=== PATIENT | male | born 1985 | race Caucasian/White ===

== ENCOUNTER 2018-08-28 15:13 | Inpatient (IN) | payer OTHER ==
[2018-08-28] MEDS ORDERED: HYDROmorphONE/DILAUDID 2 MG/ML INJ IVP ONE ×3 (15:16→15:27)
[2018-08-28] MEDS ORDERED: TDAP ADULT 0.5 ML INJ (BOOSTRIX) IM ONE (15:21)
[2018-08-28] MEDS ORDERED: ceFAZolin 2 GM/DEXTROSE 100 ML IV ONE (15:21)
[2018-08-28] MEDS ORDERED: PROPOFOL 200 MG/20 ML VIAL ONE (15:32)
[2018-08-28] MEDS ORDERED: fentaNYL 250 MCG/5 ML INJ ONE (15:32)
[2018-08-28] MEDS ORDERED: BACITRACIN 50,000 UNITS/10 ML SYR IRR ONE ×2 (15:34→17:06)
--- NOTE | 2018-08-28 15:35 | EDPHY ---
H & P Stated Complaint: Full Trauma Time Seen by Provider: 08/28/18 15:15 HPI/ROS: CHIEF COMPLAINT: Right forearm amputation HISTORY OF PRESENT ILLNESS: 33-year-old male presents as a full trauma team activation with a rate forearm amputation. He was at work, using an industrial mixer when his hand became caught in the mixer at 1446. Complete amputation at the level of the midshaft of the right forearm. A tourniquet was quickly placed and bleeding controlled. He also sustained a laceration in the right axilla. Fentanyl 100 mcg IV by EMS. Patient continues to complain of severe pain. No other injuries. REVIEW OF SYSTEMS: complete 10 point ROS negative except as noted in the HPI Source: Patient, EMS - Social History Alcohol Use: Sober - Physical Exam Exam: General Appearance: Alert, appears in pain Head: Atraumatic Eyes: No conjunctival erythema, PERRLA, EOMI ENT, Mouth: no bony tenderness Neck: Nontender, no injury Respiratory: lungs clear bilaterally Cardiovascular: Regular rate and rhythm Abdomen: Abdomen is soft and nontender Skin: No other lacerations or abrasions Back: Log-rolled, no injuries, No midline T/L/S tenderness Extremities: Right upper extremity-tourniquet placed on the lower aspect of the upper arm, complete amputation at the level of the mid-forearm, mangled tissue proximally, no bleeding; right axilla-approx 8cm laceration, no active bleeding Neurological: A&Ox3, motor/sensory grossly intact Psychiatric: Anxious, uncomfortable Constitutional: Initial Vital Signs Temperature (C) 36.5 C 08/28/18 15:14 Heart Rate 118 H 08/28/18 15:14 Respiratory Rate 24 H 08/28/18 15:14 Blood Pressure 132/82 H 08/28/18 15:14 O2 Sat (%) 100 08/28/18 15:14 O2 Delivery Mode Nasal Cannula O2 (L/minute) 4 Allergies/Adverse Reactions: No Known Allergies Allergy (Unverified 08/28/18 15:14) Home Medications: Medication Instructions Recorded NK [No Known Home Meds] 08/28/18 Medical Decision Making - Diagnostics Imaging Results: Imaging Impressions Chest X-Ray 08/28/18 15:16 Impression: Cardiomegaly with mild peribronchial thickening that could be related to fluid overload or bronchitis/airways disease, without harsh failure. Forearm X-Ray 08/28/18 15:18 Impression: Amputation of the upper extremity distal to the distal radial and ulnar diaphyses, with severely comminuted fractures of the distal radius and ulna. Findings discussed with Lisa Cahdwick M.D., on August 28, 2018 at 1530 hours. Imaging: Discussed imaging studies w/ charge nurse Radiologist, I viewed and interpreted images myself ED Course/Re-evaluation: This patient presents as a full trauma team activation with a complete amputation at the level of the right forearm. Amputated rt hand/wrist/forearm brought to ED with pt. Distal limb is quite mangled. Dr. Castillo, Dr. Fortune and Dr. Cantu were present on patient arrival. Call to [facility] ortho by Dr. Fortune re viability of limb. Limb is non-viable on their (and Dr. Fortune /Dr. Castillo's) assessment. Dilaudid 1 mg IV x2 for pain control. Ancef 2 mg IV and tetanus vaccination given. Concern for pneumothorax or intrathoracic injury given proximal axillary laceration. Stat chest x-ray reveals no evidence of pneumothorax or rib fx. Pt logrolled; no injury to neck/back. The patient went directly to the operating room, accompanied by Dr. Castillo. - Data Points Laboratory Results: Laboratory Results 08/28/18 15:25 08/28/18 15:25 08/28/18 08/28/18 08/28/18 15:28 15:25 15:25 WBC RBC Hgb POC Hgb 15.6 gm/dL gm/dL (13.7-17.5) Hct POC Hct 46 % % (40-51) MCV MCH MCHC RDW Plt Count MPV Neut % (Auto) Lymph % (Auto) Mccone % (Auto) Eos % (Auto) Baso % (Auto) Nucleat RBC Rel Count Absolute Neuts (auto) Absolute Lymphs (auto) Absolute Monos (auto) Absolute Eos (auto) Absolute Basos (auto) Absolute Nucleated RBC Immature Gran % Immature Gran # POC Sodium 144 mEq/L mEq/L (135-145) Sodium 139 mEq/L mEq/L (135-145) POC Potassium 2.8 mEq/L L mEq/L (3.3-5.0) Potassium 3.2 mEq/L L mEq/L (3.5-5.2) POC Chloride 104 mEq/L mEq/L (97-110) Chloride 108 mEq/L mEq/L (97-110) Carbon Dioxide 22 mEq/l mEq/l (22-31) Anion Gap 9 mEq/L mEq/L (6-14) POC BUN 11 mg/dL mg/dL (7-23) BUN 13 mg/dL mg/dL (7-23) Creatinine 0.8 mg/dL mg/dL (0.7-1.3) POC Creatinine 0.9 mg/dL mg/dL (0.7-1.3) Estimated GFR > 60 Glucose 93 mg/dL mg/dL (70-100) POC Glucose 95 mg/dL mg/dL (70-100) Calcium 9.0 mg/dL mg/dL (8.5-10.4) Patient ABO/Rh B NEGATIVE Antibody Screen NEGATIVE 08/28/18 15:25 WBC 11.59 10^3/uL H 10^3/uL (3.80-9.50) RBC 5.14 10^6/uL 10^6/uL (4.40-6.38) Hgb 15.8 g/dL g/dL (13.7-17.5) POC Hgb Hct 45.4 % % (40.0-51.0) POC Hct MCV 88.3 fL fL (81.5-99.8) MCH 30.7 pg pg (27.9-34.1) MCHC 34.8 g/dL g/dL (32.4-36.7) RDW 14.6 % % (11.5-15.2) Plt Count 249 10^3/uL 10^3/uL (150-400) MPV 10.9 fL fL (8.7-11.7) Neut % (Auto) 56.8 % % (39.3-74.2) Lymph % (Auto) 32.4 % % (15.0-45.0) Mccone % (Auto) 7.7 % % (4.5-13.0) Eos % (Auto) 1.7 % % (0.6-7.6) Baso % (Auto) 0.5 % % (0.3-1.7) Nucleat RBC Rel Count 0.0 % % (0.0-0.2) Absolute Neuts (auto) 6.58 10^3/uL H 10^3/uL (1.70-6.50) Absolute Lymphs (auto) 3.76 10^3/uL H 10^3/uL (1.00-3.00) Absolute Monos (auto) 0.89 10^3/uL H 10^3/uL (0.30-0.80) Absolute Eos (auto) 0.20 10^3/uL 10^3/uL (0.03-0.40) Absolute Basos (auto) 0.06 10^3/uL 10^3/uL (0.02-0.10) Absolute Nucleated RBC 0.00 10^3/uL 10^3/uL (0-0.01) Immature Gran % 0.9 % % (0.0-1.1) Immature Gran # 0.10 10^3/uL 10^3/uL (0.00-0.10) POC Sodium Sodium POC Potassium Potassium POC Chloride Chloride Carbon Dioxide Anion Gap POC BUN BUN Creatinine POC Creatinine Estimated GFR Glucose POC Glucose Calcium Patient ABO/Rh Antibody Screen Medications Given: Discontinued Medications Diphtheria/Tetanus/Acell Pertussis (Boostrix) 0.5 ml IM .ONCE ONE Stop: 08/28/18 15:22 Last Admin: 08/28/18 15:29 Dose: 0.5 ml Hydromorphone HCl (Dilaudid) 1 mg IVP EDNOW ONE Stop: 08/28/18 15:17 Last Admin: 08/28/18 15:16 Dose: 1 mg Hydromorphone HCl (Dilaudid) 1 mg IVP EDNOW ONE Stop: 08/28/18 15:23 Last Admin: 08/28/18 15:23 Dose: 1 mg Hydromorphone HCl (Dilaudid) 1 mg IVP EDNOW ONE Stop: 08/28/18 15:28 Last Admin: 08/28/18 15:26 Dose: 1 mg Cefazolin Sodium/Dextrose (Ancef) 100 mls @ 200 mls/hr IV EDNOW ONE PRN Reason: Protocol Stop: 08/28/18 15:50 Last Admin: 08/28/18 15:22 Dose: 100 mls Point of Care Test Results: Chemistry 08/28/18 15:28 POC Sodium 144 mEq/L mEq/L (135-145) POC Potassium 2.8 mEq/L L mEq/L (3.3-5.0) POC Chloride 104 mEq/L mEq/L (97-110) POC BUN 11 mg/dL mg/dL (7-23) POC Creatinine 0.9 mg/dL mg/dL (0.7-1.3) POC Glucose 95 mg/dL mg/dL (70-100) ISTAT H&H 08/28/18 15:28 POC Hgb 15.6 gm/dL gm/dL (13.7-17.5) POC Hct 46 % % (40-51) Departure - Departure Disposition: [facility] Inpatient Acute Clinical Impression: Traumatic amputation of right forearm Qualifiers: Encounter type: initial encounter Qualified Code(s): S58.911A - Complete traumatic amputation of right forearm, level unspecified, initial encounter Condition: Serious
[2018-08-28 15:36] LABS: PLATELET COUNT 249 10^3/uL (150-400)
[2018-08-28] MEDS ORDERED: POLYMYXIN B SULFATE 500,000 UNIT/10 ML SYR IRR ONE (15:38)
[2018-08-28] MEDS ORDERED: ROCURONIUM 50 MG/5 ML VIAL ONE (16:31)
[2018-08-28] MEDS ORDERED: HYDROmorphONE/DILAUDID 2 MG/ML INJ ONE ×2 (16:32→18:17)
[2018-08-28] MEDS ORDERED: DEXAMETHASONE 4 MG/ML VIAL ONE ×2 (16:32)
[2018-08-28] MEDS ORDERED: ONDANSETRON 4 MG/2 ML VIAL ONE ×3 (16:32→18:17)
[2018-08-28] MEDS ORDERED: SUGAMMADEX SODIUM 200 MG/2 ML VIAL IVP ONE (17:22)
[2018-08-28] MEDS ORDERED: BUPIVACAINE 0.5% 30 ML SDV ONE (17:24)
[2018-08-28] MEDS ORDERED: fentaNYL 100 MCG/2 ML INJ ONE (17:58)
[2018-08-28] MEDS: ONDANSETRON 4 MG/2 ML VIAL IVP PRN ×2 (17:58→18:19)
[2018-08-28] MEDS: fentaNYL 100 MCG/2 ML INJ IVP PRN ×2 (17:58→18:13)
[2018-08-28] MEDS ORDERED: PROMETHAZINE HCL 25 MG/ML INJ IVP PRN ×2 (17:59→18:20)
[2018-08-28] MEDS ORDERED: ACETAMINOPHEN 500 MG TAB PO PRN (17:59)
[2018-08-28] MEDS ORDERED: oxyCODONE IR 5 MG TAB PO PRN (17:59)
[2018-08-28] MEDS ORDERED: ALBUTEROL 3 ML DEYVIAL IH PRN (17:59)
[2018-08-28] MEDS ORDERED: NALOXONE HCL 0.4 MG/ML INJ IVP PRN ×2 (17:59→18:20)
--- NOTE | 2018-08-28 17:59 | PDANEPAE ---
ANE History of Present Illness R Hand Traumatic Amputation ANE Review of Systems Review of Systems: ANE Patient History - Allergies Allergies/Adverse Reactions: No Known Allergies Allergy (Unverified 08/28/18 15:14) - Home Medications Home Medications: NK [No Known Home Meds] 08/28/18 [Last Taken Unknown] - Alcohol Use Alcohol Use: Sober ANE Labs/Vital Signs - Labs Result Diagrams: 08/28/18 15:25 08/28/18 15:25 - Vital Signs Blood Pressure: 160/98 Heart Rate: 79 Respiratory Rate: 22 O2 Sat (%): 100 Height: 177.8 cm Weight: 74.5 kg ANE Physical Exam - Airway Neck exam: FROM Mallampati Score: Class 2 Mouth exam: poor dentition - Pulmonary Pulmonary: clear to auscultation - Cardiovascular Cardiovascular: regular rate and rhythym - ASA Status ASA Status: II, E ANE Anesthesia Plan Anesthesia Plan: general endotracheal anesthesia Urgent/Emergent Case: Sheron lowery completed preop but documented later for safe timely pt care
--- NOTE | 2018-08-28 17:59 | POSTANESTH ---
Post Anesthetic Evaluation Cardiovascular Status: Normal, Stable Respiratory Status: Normal, Stable Level of Consciousness/Mental Status: Can Participate in Eval, Alert and Oriented Pain Control: Adequate, Prn Tx Ordered Nausea/Vomiting Control: Adequate, Prn Tx Ordered Complications Possibly Related to Anesthesia: None Noted
[2018-08-28] MEDS ORDERED: HYDROCODONE/APAP 5/325 TAB PO PRN (18:07)
--- NOTE | 2018-08-28 18:14 | POSTOPPROG ---
Post Op Note Date of Operation: 08/28/18 Surgeon: Tong Castillo Anesthesiologist: shea Anesthesia: GET(General Endotracheal) Pre-op Diagnosis: traumatic Forearm amputation Rt Post-op Diagnosis: same Indication: amputation Procedure: 1. revision FAS amputation., 2. I&D laceration Rt axilla Inf/Abcess present in the surg proc area at time of surgery?: No EBL: 50-100 Complications: none
[2018-08-28] MEDS: HYDROmorphONE/DILAUDID 2 MG/ML INJ IVP PRN ×4 (18:22→19:43)
[2018-08-28] MEDS ORDERED: PROMETHAZINE HCL 25 MG/ML INJ ONE (18:32)
--- NOTE | 2018-08-28 18:40 | GOP ---
DATE OF OPERATION: 08/28/2018 SURGEON: Tong Castillo MD ANESTHESIOLOGIST: Dr. Neri. PREOPERATIVE DIAGNOSIS: Distal 1/3rd forearm amputation right hand, laceration , right axilla. POSTOPERATIVE DIAGNOSIS: PROCEDURE PERFORMED: 1. Revision amputation with incision and drainage, complex wound closure, right forearm. 2. Incision and drainage, wound closure laceration right axilla. FINDINGS: INDICATIONS: This is a 33-year-old male who was at work shortly before 3 o' clock today when he got his right arm stuck into an industrial mixer. This amputated his hand distal 3rd region of the forearm. He was brought urgently by EMS to the [facility]. He was evaluated in the [facility] [place] by myself with Dr. Luke Jang from Trauma surgery and Dr. Chase Fortune. They did bring what was remaining of the hand and forearm. The hand was not salvageable, there were no visible vessels. Median nerve was completely avulsed from the hand. The residual hand and the tissues were all covered in a thick paste like food material. He had active bleeding from his forearm despite a field tourniquet that had been on for 40 minutes by the time he arrived in the trauma bay. There were no other obvious injuries other than the laceration to the axilla. He could lift his shoulder and move his elbow, which was consistent with an intact brachial plexus. He was taken urgently to the operating room for control of his bleeding and revision amputation and closure of his axillary wound. DESCRIPTION OF PROCEDURE: He was taken to the operating room, he got 2 g of Ancef in the trauma bay. The field tourniquet was let down as we prepped the arm. There was some active bleeding from the radial vessel. We then draped the arm sterilely. I explored the radial vessel and was able to ligate it using silk ties the ulnar and interosseous vessels were identified and ligated. Median nerve was identified. This was also ligated and cut. The wound was irrigated with pulsatile lavage. There was no further active bleeding. I was then able to remove multiple loose fragments of bone from the radius and ulna fractures and using an oscillating saw, I smoothed off the ends of the bone with a smooth cut. Wound was irrigated a final time. Imaging was brought in. There were no loose bodies within the forearm. No pieces of bone remained within the wound. I then freed up the fascia on the volar and dorsal aspect of the forearm and was able to close this over the remaining forearm muscles. Then using a fishmouth type of incision, I was able to loosely close the skin over the end of the amputation. There was some abrasions of the skin, but it was intact and appeared viable. The deep layers were closed with #0 Vicryl, superficial layers closed with 3-0 nylon. I then turned my attention to the axilla. This appeared to be just a superficial wound with no vessels involved. The brachial plexus was still completely covered beneath the fascia. There was only minimal bleeding from the skin edges. There was no deep bleeding from the axilla. I irrigated the axillary wound with pulsatile lavage as well. A total of 6 L was used between the forearm and the axilla with polymyxin and bacitracin within the irrigation fluid. I then loosely closed the wound with 2-0 Vicryl and interrupted 3-0 nylon suture. I instilled 30 mL of 0.5% Marcaine plain around the axillary laceration and in a ring block around the forearm for postoperative analgesia. A bulky compressive dressing was applied to the forearm and a silver impregnated dressing was applied in the axilla. The patient was awakened from anesthesia, taken to recovery room in satisfactory condition. There were no immediate intraoperative complications. COMPLICATIONS: None. DRAINS: None. /[id number]/MODL MTDD
[2018-08-28] MEDS: KETOROLAC 15 MG/1 ML SDV IVP SCH ×2 (19:20→20:28)
[2018-08-28] MEDS ORDERED: KETOROLAC 15 MG/1 ML SDV ONE (19:23)
--- NOTE | 2018-08-28 19:29 | ASMTCMCOM ---
CM Note CM Note Notes: Pt presented to the ED via EMS as a FTA after having his right hand and partial forearm mechanically amputated by an industrial mixer at work. Unfortunately the amputated hand was assessed and deemed not salvageable/not viable for reattachment. Pt is right handed. Pt requested this CM contact his mother, Ashley ([phone]). Spoke w/Ashley and she was on her way to the hospital. Ashley arrived to the ED after pt had already been transferred to OR for revision, I&D and I&D of a right axilla laceration. This CM met Ashley at the ED waiting area and brought her back to the ED family room. Ashley updated on pt's status and that the pt's hand was not going to be able to be reattached. Ashley was understandably upset and distraught over this news. Emotional support provided. Tg Santamaria w/[facility] was also able to come and be w/Ashley, assist her to the OR waiting area, and provide her w/support. 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 Ashley said she and the pt recently reunited; Ashley moved to [place] two years ago and the pt moved here about a year ago. Ashley states pt and her have been working on rebuilding their relationship and have made improvements but "still have a ways to go." Ashley is concerned about how this life-changing injury/amputation w/effect the pt's mental stability (pt has a history of SI). Pt also has a history of overdosing on narcotics so Ashley is worried about pt becoming addicted to pain meds again. Ashley is hoping that the pt will also receive mental health support/therapy in addition to all the PT/OT therapies, rehab, etc. This CM explained that the pt can definitely be provided w/various mental health resources, be assisted w/establishing a PCP, and be visited by [facility] for additional emotional support if he would like. Ashley says she and the pt do not have any family or friend support in the area. Ashley was worried that she might have left her door open to their house in [place] but when asked if she could call a neighbor she said "I don't know any of them. I don't know anyone around here. I just go to work and come home." Tg w/[facility] also provided Ashley w/various trauma/grief resources. 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 Pt's cell phone is locked up w/security. Exact DC needs TBD. CM to follow. Date Signed: 08/28/2018 07:28 PM Electronically Signed By:Jigna Gibson RN
[2018-08-28] MEDS: D5W 1/2 NS W/ 20 KCl/L 1,000 ML IV SCH (20:17)
--- NOTE | 2018-08-28 20:20 | GHP ---
DATE OF ADMISSION: 08/28/2018 The patient is brought as a full trauma activation. 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 The hand specimen consisted of a normal-appearing right hand with lengthy segments of avulsed musculature, yoon ne, nerves, tendons, etc., shredded and covered in melted chocolate. The patient was seen initially with Dr. Tong Castillo, orthopedic surgeon, who was in attendance when the patient arrived, as was I. The patient gave a coherent medical history, denying allergies, curr ent medications, previous surgical procedures or medical problems such as heart trouble, diabetes, ep ilepsy, rheumatic fever. PHYSICAL EXAMINATION: GENERAL: Alert male complaining of severe right arm pain. A tourniquet is pr esent below the biceps on the right. He moves the right arm freely. The right hand is missing dista l to the forearm, and there is an extension of the laceration in the left upper arm into the axilla, and numerous nerves and superficial vessels are seen crossing the axilla at the sign of the skin avul glenna. It does not appear to extend into the deep vessels. As mentioned, the patient moves the shoul rex girdle freely. HEENT: Atraumatic. LUNGS: Clear. HEART: Normal S1, S2 without murmur. ABDOME N: Soft, benign. Pelvis stable. EXTREMITIES: Lower extremities and left upper extremity are atrau matic. The patient is eventually turned over on his side. Examination of the posterior spine and ba ck shows no other injuries. I discussed the nature of the amputation with Dr. Castillo and Dr. Fortune was in attendance as well, and we all agree that there was no possibility of salvage of this mangled arm. I believe they consul sarabjit with people in [place] as well by sending picture images. Dr. Casitllo wanted to take the patient to complete the amputation, which is appropriate, and this wa s done. /[id number]/MODL
[2018-08-28] MEDS: DOCUSATE SODIUM 100 MG CAP PO SCH (20:48)
[2018-08-28] MEDS: OXYCODONE/APAP 5/325 TAB PO PRN ×2 (20:48→21:36)
[2018-08-28] MEDS: HYDROmorphONE/DILAUDID 1 MG/ML INJ IVP PRN ×3 (22:26→23:56)
[2018-08-28] MEDS: ceFAZolin 2 GM/DEXTROSE 100 ML IV SCH (23:13)
[2018-08-29] MEDS: HYDROmorphONE/DILAUDID 1 MG/ML INJ IVP PRN ×4 (02:37→07:20)
--- NOTE | 2018-08-29 02:38 | GHP ---
DATE OF ADMISSION: 08/28/2018 REASON FOR ADMISSION: Traumatic amputation, right forearm. HISTORY OF PRESENT ILLNESS: The patient was at work this afternoon and got his right hand stuck in a n industrial mixer, and sustained a traumatic forearm amputation of the distal third of his forearm. He was brought urgently to [facility] by EMS along with the amput ated extremity. This was completely mangled and unable to be salvaged. The extremity was examined b y myself, Dr. Luke Nance, as well as Dr. Shiraz Fortune, another orthopedic surgeon, who all agre ed with proceeding with an amputation of the forearm. He was evaluated in the [facility] [place] for any oth er injuries, not found, and brought urgently, because of active bleeding, up to the operating room fo r revision amputation and control of bleeding. PRIOR MEDICAL HISTORY: None. MEDICATIONS: None. ALLERGIES: None. 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 Lives with his mom. Does not smoke. Sounds like he does have a history of some alcohol abuse in the past. No current use. PHYSICAL EXAM: He is in obvious distress. He answers questions appropriately. He has a traumatic a mputation distal through the arm with active bleeding. He has a field tourniquet in place on the dis ian upper arm. There is a large, 16 cm, laceration in the underside of his axilla. No active arteri al bleeding noted from that wound. No other injuries are seen. IMAGING STUDIES: X-rays in the [facility] do show comminuted radioulnar fractures at the amputation site with multiple loose fragments within the wound. ASSESSMENT: Traumatic forearm amputation, right. PLAN: We discussed the plan with the patient. He understands that the arm is not salvageable and gi ves his verbal consent to proceed to the operating room for a revision of the right forearm, and wash out and closure of the axillary wound. He verbalizes consent in the [facility] [place] and is then taken urg ently to the operating room for the procedure. /[id number]/MODL
[2018-08-29] MEDS: oxyCODONE IR 5 MG TAB PO PRN ×5 (06:29→20:38)
[2018-08-29] MEDS: D5W 1/2 NS W/ 20 KCl/L 1,000 ML IV SCH ×2 (07:22→17:48)
[2018-08-29] MEDS: KETOROLAC 15 MG/1 ML SDV IVP SCH ×2 (07:24→14:39)
[2018-08-29] MEDS: ceFAZolin 2 GM/DEXTROSE 100 ML IV SCH (07:25)
[2018-08-29] MEDS: DOCUSATE SODIUM 100 MG CAP PO SCH ×2 (08:48→20:39)
--- NOTE | 2018-08-29 11:53 | PDMN ---
Medical Necessity Medical necessity: [facility] musculoskeletal sgy INPT only: OP: I/D, revision FAS amputation, -- pt with traumatic amputation of arm, non salvageable- taken urgently to OR
[2018-08-29] MEDS: NICOTINE 21 MG/24 HR PATCH TD SCH (12:12)
--- NOTE | 2018-08-29 13:17 | SOAPPROG ---
SOAP Progress Note Assessment/Plan: Assessment: Plan: 08/29/18 13:17 POD#1 revision amputation RT FA I&D axillary laceration will start gabapentin for phantom pain add flexeril for mm spasm Subjective: pain better controlled today c/o hand pain Objective: some bleeding on dressing forearm swollen but soft able to flex shoulder, flex ext elbow Vital Signs Temp Pulse Resp BP Pulse Ox 37.2 C 48 L 18 148/82 H 92 08/29/18 12:04 08/29/18 12:04 08/29/18 12:04 08/29/18 12:04 08/29/18 12:04 Laboratory Results 08/29/18 05:45 08/28/18 08/29/18 08/30/18 05:59 05:59 05:59 Intake Total 2009 Output Total 7833 100 Balance -715 -100 ICD10 Worksheet Patient Problems: Problems Problem Status Onset Traumatic amputation of right forearm Acute
[2018-08-29] MEDS: CYCLOBENZAPRINE 10 MG TAB PO PRN ×2 (13:32→20:39)
--- NOTE | 2018-08-29 14:20 | TRAUMAPN ---
Trauma Progress Note Subjective: awake/alert, tearful reports pain right forearm Objective: Vital Signs Temp Pulse Resp BP Pulse Ox 37.2 C 48 L 18 148/82 H 92 08/29/18 12:04 08/29/18 12:04 08/29/18 12:04 08/29/18 12:04 08/29/18 12:04 Laboratory Results 08/29/18 05:45 08/28/18 08/29/18 08/30/18 05:59 05:59 05:59 Intake Total 2009 Output Total 5815 100 Balance -715 -100 - C-Spine Clearance Cervical Spine Cleared: Yes Provider who Cleared Cervical Spine: Goyo Physical Exam - Physical Exam General Appearance: mild distress EENT: PERRL/EOMI Neck: non-tender, full range of motion, supple Respiratory: lungs clear, normal breath sounds Cardiac/Chest: regular rate, rhythm Peripheral Pulses: 4+: dorsalis-pedis (R), dorsalis-pedis (L) Abdomen: non-tender, soft Male Genitalia: deferred Rectal: deferred Back: Normal inspection Skin: warm/dry Lymphatic: no adenopathy Extremities: other (RUE dressing dry) Neuro/Psych: alert, normal mood/affect, oriented x 3 Time Spent w/Patient (minutes): 15
--- NOTE | 2018-08-29 14:21 | ASMTCMCOM ---
CM Note CM Note Notes: Met with pt, admitted after traumatic right hand amputation from an industrial mixer. Pt moved here from [place] and is living with his mother. He is understandably tearful at times d/t the traumatic nature of the incident, he is open to speaking with spiritual care and being screened by Medicaid. Will also give names of possible PCPs to establish with. OT eval pending, [facility] w/f. DC Plan: TBD Date Signed: 08/29/2018 02:20 PM Electronically Signed By:Carmencita Chen RN
[2018-08-29] MEDS: GABAPENTIN 300 MG CAP PO SCH ×2 (15:53→20:38)
[2018-08-29] MEDS: TEMAZEPAM 15 MG CAP PO PRN ×2 (20:40)
[2018-08-30] MEDS: oxyCODONE IR 5 MG TAB PO PRN ×5 (01:48→19:00)
[2018-08-30] MEDS: CYCLOBENZAPRINE 10 MG TAB PO PRN ×3 (05:26→21:16)
[2018-08-30] MEDS: NICOTINE 21 MG/24 HR PATCH TD SCH (07:17)
[2018-08-30] MEDS: DOCUSATE SODIUM 100 MG CAP PO SCH ×2 (07:17→21:15)
[2018-08-30] MEDS: GABAPENTIN 300 MG CAP PO SCH ×3 (07:17→21:15)
--- NOTE | 2018-08-30 15:23 | SOAPPROG ---
SOAP Progress Note Assessment/Plan: Assessment: Plan: 08/29/18 13:17 POD#1 revision amputation RT FA I&D axillary laceration will start gabapentin for phantom pain add flexeril for mm spasm 08/30/18 15:22 POD#2 revision FA amputation wean from IV pain meds pain better now with loose dressing Possible DC home Monday or Monday if pain controlled Subjective: pain 8/10 mid morning relief with bandage change by nursing Objective: dressing changed skin viable swelling in arm moving elbow and shoulder without difficulty Vital Signs Temp Pulse Resp BP Pulse Ox 37.4 C 67 16 144/92 H 95 08/30/18 07:51 08/30/18 07:51 08/30/18 07:51 08/30/18 07:51 08/30/18 07:51 Laboratory Results 08/30/18 05:25 08/29/18 05:45 08/29/18 08/30/18 08/31/18 05:59 05:59 05:59 Intake Total 2009 480 Output Total 5789 100 Balance -715 380 ICD10 Worksheet Patient Problems: Problems Problem Status Onset Traumatic amputation of right forearm Acute
[2018-08-30] MEDS: TEMAZEPAM 15 MG CAP PO PRN (21:16)
[2018-08-31] MEDS: oxyCODONE IR 5 MG TAB PO PRN ×6 (01:10→22:50)
[2018-08-31] MEDS: CYCLOBENZAPRINE 10 MG TAB PO PRN ×3 (06:37→22:49)
[2018-08-31] MEDS: NICOTINE 21 MG/24 HR PATCH TD SCH (07:20)
[2018-08-31] MEDS: HYDROmorphONE/DILAUDID 1 MG/ML INJ IVP PRN (09:38)
[2018-08-31] MEDS: DOCUSATE SODIUM 100 MG CAP PO SCH ×2 (09:38→22:49)
[2018-08-31] MEDS: GABAPENTIN 300 MG CAP PO SCH ×3 (09:38→22:50)
--- NOTE | 2018-08-31 10:35 | SOAPPROG ---
SOAP Progress Note Assessment/Plan: Assessment: Plan: 08/29/18 13:17 POD#1 revision amputation RT FA I&D axillary laceration will start gabapentin for phantom pain add flexeril for mm spasm 08/30/18 15:22 POD#2 revision FA amputation wean from IV pain meds pain better now with loose dressing Possible DC home Monday or Monday if pain controlled 08/31/18 10:34 POD#3 revision FA amputation cont to wean from IV pain meds anticipate DC Monday Subjective: pain still requiring Iv dilaudid Mom at bedside Objective: DRessing changed small area <5mm necrotic skin dorsum of wound swelling in FA about the same Vital Signs Temp Pulse Resp BP Pulse Ox 36.6 C 119 H 18 141/99 H 91 L 08/31/18 07:30 08/31/18 09:30 08/31/18 07:30 08/31/18 07:30 08/31/18 07:30 Laboratory Results 08/30/18 05:25 08/29/18 05:45 08/30/18 08/31/18 09/01/18 05:59 05:59 05:59 Intake Total 480 Output Total 100 Balance 380 ICD10 Worksheet Patient Problems: Problems Problem Status Onset Traumatic amputation of right forearm Acute
[2018-08-31] MEDS: TEMAZEPAM 15 MG CAP PO PRN (22:49)
[2018-09-01] MEDS: CYCLOBENZAPRINE 10 MG TAB PO PRN ×2 (03:35→10:48)
[2018-09-01] MEDS: oxyCODONE IR 5 MG TAB PO PRN ×3 (03:35→10:43)
--- NOTE | 2018-09-01 07:30 | SOAPPROG ---
SOAP Progress Note Assessment/Plan: Assessment: Plan: 08/29/18 13:17 POD#1 revision amputation RT FA I&D axillary laceration will start gabapentin for phantom pain add flexeril for mm spasm 08/30/18 15:22 POD#2 revision FA amputation wean from IV pain meds pain better now with loose dressing Possible DC home Monday or Monday if pain controlled 08/31/18 10:34 POD#3 revision FA amputation cont to wean from IV pain meds anticipate DC Monday09/01/18 07:28 POD#4 revision FA amp DC home Today F/U [place] 3-5 days Subjective: pain controlled with oral meds Objective: dressings changed wounds healing no signs of infection brachial plexus function intact Vital Signs Temp Pulse Resp BP Pulse Ox 37.2 C 92 16 141/98 H 96 08/31/18 23:03 08/31/18 23:03 08/31/18 23:03 08/31/18 23:03 08/31/18 23:03 Laboratory Results 08/30/18 05:25 08/29/18 05:45 ICD10 Worksheet Patient Problems: Problems Problem Status Onset Traumatic amputation of right forearm Acute
[2018-09-01 07:54] VITALS: BP 139/85
[2018-09-01] MEDS: NICOTINE 21 MG/24 HR PATCH TD SCH (08:04)
[2018-09-01] MEDS: GABAPENTIN 300 MG CAP PO SCH (08:04)
[2018-09-01] MEDS: DOCUSATE SODIUM 100 MG CAP PO SCH (08:04)
--- NOTE | 2018-09-01 13:01 | ASMTLACE ---
YRN Length of stay for Answers: 4-6 days current admission Acuity / Level of Answers: Yes Care: Did the patient have an inpatient admission? Comorbidities - select Answers: Other Notes: Traumatic forearm all that apply amputation # of Emergency department Answers: 1-2 visits in the last 6 months Social determinants Answers: History of substance abuse (ETOH, street drugs, prescription drugs, etc.) Score: 12 Date Signed: 09/01/2018 01:01 PM Electronically Signed By:JOHN Rodas
--- NOTE | 2018-09-01 13:04 | ASMTCMCOM ---
CM Note CM Note Notes: Pt medically stable for d/c independent. Pt was provided amputee resources and [facility] by prior CM. Med Data also screened pt for Medicaid. Date Signed: 09/01/2018 01:03 PM Electronically Signed By:JOHN Rodas
== END 2018-09-01 14:03 | disposition home or self-care (01) | DRG 909 ==
LOC: FSGY 17:38 → F3E 18:08
PROVIDERS: ADMIT Orthopaedic Surgery; ATTEND Orthopaedic Surgery
DX: S58.111A Complete traumatic amputation at level between elbow and wrist, right arm, initial encounter (principal); S41.111A Laceration without foreign body of right upper arm, initial encounter; W23.0XXA Caught, crushed, jammed, or pinched between moving objects, initial encounter; Y92.512 Supermarket, store or market as the place of occurrence of the external cause; Y99.0 Civilian activity done for income or pay; Y93.G9 Activity, other involving cooking and grilling
CPT/HCPCS: 80307; 82435-PO; 82565-PO; 82947-PO; 84132-PO; 84295-PO; 84520-PO; 85014-ER; 96374; 97110-GO; 97166-GO; 97530-GO; 97535-GO; G0480; J0690; J1100; J1170; J1885; J2270; J2405; J2550; J2704; J3010

== ENCOUNTER 2018-11-08 09:17 | Inpatient (IN) | payer MEDICAID, OTHER ==
--- NOTE | 2018-11-08 09:40 | EDPHY ---
H & P Stated Complaint: depression/si Time Seen by Provider: 11/08/18 09:23 HPI/ROS: Chief Complaint: Depressed, suicidal HPI: 33-year-old male with a history of depression and a suicide attempt by hanging in the past. Patient is been referred to the emergency department by his orthopedic surgeon for increasing suicidal ideation and hopelessness. Patient has a counselor but no psychiatrist. Has a strong family history of depression and suicidality. He recently had a traumatic amputation of his right hand in August. Patient is increasingly depressed and hopeless. Does not currently have a plan. He is not taking any medications. Patient was seen by his orthopedic surgeon, Dr. Castillo prior to coming here. Dr. Castillo is happy with the healing. He is medically clear from a wound check standpoint. ROS: 10 systems were reviewed and were negative except those elements noted in the HPI. PMH: Right hand traumatic amputation, depression Social History: Positive smoking, no alcohol, occasional marijuana Family History: non-contributory Physical Exam: Gen: Awake, Alert, No Distress HEENT: Nose: no rhinorrhea Eyes: PERRLA, EOMI Mouth: Moist mucosa Neck: Supple, no JVD Chest: nontender, lungs clear to auscultation Heart: S1, S2 normal, no murmur Abd: Soft, non-tender, no guarding Back: no CVA tenderness, no midline tenderness Ext: no edema, non-tender, right amputation site in dressing. Skin: no rash Neuro: CN II-XII intact, Sensation grossly intact, Strength 5/5 in bilateral upper and lower extremities - Medical/Surgical History Hx Asthma: No Hx Chronic Respiratory Disease: No Hx Diabetes: No Hx Cardiac Disease: No Hx Renal Disease: No Hx Cirrhosis: No Hx Alcoholism: No Hx HIV/AIDS: No Hx Splenectomy or Spleen Trauma: No Other PMH: cleft lip r arm amputation - Social History Smoking Status: Heavy smoker Constitutional: Initial Vital Signs Temperature (C) 36.5 C 11/08/18 09:21 Heart Rate 53 L 11/08/18 09:21 Respiratory Rate 18 11/08/18 09:21 Blood Pressure 137/90 H 11/08/18 09:21 O2 Sat (%) 98 11/08/18 09:21 O2 Delivery Mode Room Air Allergies/Adverse Reactions: No Known Allergies Allergy (Verified 11/08/18 09:20) Home Medications: Medication Instructions Recorded Gabapentin [Neurontin 300 MG (*)] 600 mg PO TID 30 Days #180 cap 08/31/18 Nicotine [Nicoderm Cq 21 mg (*)] 21 mg TD DAILY #7 patch 08/31/18 oxyCODONE IR [Oxycodone Ir (*)] 10 - 15 mg PO Q3 PRN #90 tab 08/31/18 Tizanidine HCl 11/08/18 Medical Decision Making ED Course/Re-evaluation: 33-year-old male with a history of depression increasingly suicidal and hopeless. I placed him on an M1 hold. Will perform medical screening tests. He will need mental health evaluation. I expect he will benefit from inpatient psychiatric care. Patient has been evaluated by the mental health paramedical aide. Patient will be admitted to [address] [place] [address] unit by nurse practitioner Bethany. I have completed the EMTALA - Data Points Laboratory Results: Laboratory Results 11/08/18 10:15 11/08/18 10:15 11/08/18 11/08/18 11/08/18 11:45 10:15 10:15 WBC 5.80 10^3/uL 10^3/uL (3.80-9.50) RBC 5.61 10^6/uL 10^6/uL (4.40-6.38) Hgb 17.1 g/dL g/dL (13.7-17.5) Hct 50.0 % % (40.0-51.0) MCV 89.1 fL fL (81.5-99.8) MCH 30.5 pg pg (27.9-34.1) MCHC 34.2 g/dL g/dL (32.4-36.7) RDW 13.0 % % (11.5-15.2) Plt Count 218 10^3/uL 10^3/uL (150-400) MPV 11.0 fL fL (8.7-11.7) Neut % (Auto) 66.2 % % (39.3-74.2) Lymph % (Auto) 24.7 % % (15.0-45.0) [place] % (Auto) 6.4 % % (4.5-13.0) Eos % (Auto) 1.7 % % (0.6-7.6) Baso % (Auto) 0.7 % % (0.3-1.7) Nucleat RBC Rel Count 0.0 % % (0.0-0.2) Absolute Neuts (auto) 3.84 10^3/uL 10^3/uL (1.70-6.50) Absolute Lymphs (auto) 1.43 10^3/uL 10^3/uL (1.00-3.00) Absolute Monos (auto) 0.37 10^3/uL 10^3/uL (0.30-0.80) Absolute Eos (auto) 0.10 10^3/uL 10^3/uL (0.03-0.40) Absolute Basos (auto) 0.04 10^3/uL 10^3/uL (0.02-0.10) Absolute Nucleated RBC 0.00 10^3/uL 10^3/uL (0-0.01) Immature Gran % 0.3 % % (0.0-1.1) Immature Gran # 0.02 10^3/uL 10^3/uL (0.00-0.10) Sodium 137 mEq/L mEq/L (135-145) Potassium 4.3 mEq/L mEq/L (3.5-5.2) Chloride 102 mEq/L mEq/L (97-110) Carbon Dioxide 27 mEq/l mEq/l (22-31) Anion Gap 8 mEq/L mEq/L (6-14) BUN 16 mg/dL mg/dL (7-23) Creatinine 0.8 mg/dL mg/dL (0.7-1.3) Estimated GFR > 60 Glucose 89 mg/dL mg/dL (70-100) Calcium 9.8 mg/dL mg/dL (8.5-10.4) Urine Opiates Screen NEGATIVE (NEGATIVE) Urine Barbiturates NEGATIVE (NEGATIVE) Ur Phencyclidine Scrn NEGATIVE (NEGATIVE) Ur Amphetamine Screen NEGATIVE (NEGATIVE) U Benzodiazepines Scrn NEGATIVE (NEGATIVE) Urine Cocaine Screen NEGATIVE (NEGATIVE) U Marijuana (THC) Screen NEGATIVE (NEGATIVE) Ethyl Alcohol < 10 mg/dL mg/dL (0-10) Departure - Departure Disposition: [facility] IP Clinical Impression: Suicidal ideation, Severe major depression Condition: Fair Referrals: Tong Csatillo MD [Primary Care Provider] - As per Instructions
[2018-11-08 10:29] LABS: PLATELET COUNT 218 10^3/uL (150-400)
[2018-11-08] MEDS ORDERED: oxyCODONE IR 5 MG TAB PO ONE (13:35)
[2018-11-08] MEDS ORDERED: NICOTINE 14 MG/24 HR PATCH TD ONE ×2 (13:52)
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
--- NOTE | 2018-11-08 14:03 | ASMTTCLDSP ---
TLC Discharge Disposition Disposition: Answers: Admit Discharge Concerns/Recommendations: Notes: In consultation with [facility] ED physician, Tomas Shankar MD and on-call BRITTNI Allen MD, both concurred that pt appears to meet 27-65 criteria requiring psychiatric hospitalization as pt appears to be at risk of harm to self/others due to a mental illness condition. Pt was read the Patient Rights and Responsibilities Statement on ( 11/08/18: 13:00), original placed on chart, and was given photocopy of Rights. Pt signed the Patient Rights. Pt was given the 3N prohibited belongings list while in the ED. For inpatient [facility] admission, the following psychiatrist agreed to accept patient for admission to [facility] ([facility] Date Signed: 11/08/2018 02:02 PM Electronically Signed By:Marielena Oliva
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
[2018-11-08] MEDS ORDERED: oxyCODONE IR 5 MG TAB PO PRN ×2 (15:54→19:30)
[2018-11-08] MEDS ORDERED: MAGNESIUM HYDROXIDE 30 ML UDCUP PO PRN (15:55)
[2018-11-08] MEDS ORDERED: ACETAMINOPHEN 325 MG TAB PO PRN (15:57)
[2018-11-08] MEDS ORDERED: NICOTINE POLACRILEX 2 MG GUM B PRN (15:57)
[2018-11-08] MEDS ORDERED: MAG HYDROX/AL HYDROX/SIMETH 30 ML UDCUP PO PRN (15:57)
[2018-11-08] MEDS ORDERED: GABAPENTIN 400 MG CAP PO SCH (16:00)
[2018-11-08] MEDS ORDERED: IBUPROFEN 600 MG TAB PO PRN (16:06)
[2018-11-08] MEDS ORDERED: tiZANidine HCL 2 MG TAB PO PRN (16:06)
--- NOTE | 2018-11-08 16:11 | PDGENHP ---
History and Physical - Chief Complaint depression and suicidal ideation - History of Present Illness Use briefly Mr. Bryant is a 33-year-old gentleman who had a traumatic right hand amputation in August that occurred while he was at working. He came to the emergency room with encouragement from his mother. Has a history of depression , addiction and is feeling suicidal. He is currently on workmen's comp due to his recent injury. He also has a 35 pound weight loss since August of this year. He has no appetite due to his depression. He denies any alcohol use or any drug use at this time. The plan is for him to go to [facility] for treatment. PMH: depression, right hand traumatic amputation in August of 2018. History of narcotic and drug dependence and addiction. SH: Currently, lives with his mother. Smokes approximately 4-5 cigarettes/day. Not drinking alcohol. Not using any medications. Currently, not in a relationship. Family history: Mom is healthy, father is unknown. History Information - Allergies/Home Medication List Allergies/Adverse Reactions: No Known Allergies Allergy (Verified 11/08/18 09:20) Home Medications: oxyCODONE IR [Oxycodone Ir (*)] 5 mg PO 5XD PRN 11/08/18 [Last Taken 11/08/18 13 :00] tiZANidine HCL [Zanaflex 2MG (*)] 4 mg PO HS PRN 11/08/18 [Last Taken 11/07/18] I have personally reviewed and updated: family history, medical history, social history, surgical history - Social History Smoking Status: Heavy smoker Review of Systems Review of Systems: ROS: 10pt was reviewed & negative except for what was stated in HPI & below Constitutional: Reports: no symptoms EENMT: Reports: no symptoms Cardiac: Reports: no symptoms Respiratory: Reports: no symptoms Gastrointestinal: Reports: no symptoms Genitourinary: Reports: no symptoms Muscolosketal: Reports: no symptoms Neurological: Reports: anxiety, depressed, emotional problems Immunologic/Allergy: Reports: no symptoms Physical Exam Physical Exam: Temp Pulse Resp BP Pulse Ox 36.5 C 69 18 122/77 H 97 11/08/18 09:21 11/08/18 14:48 11/08/18 14:48 11/08/18 14:48 11/08/18 14:48 Constitutional: no apparent distress, other (thin) Eyes: PERRL Ears, Nose, Mouth, Throat: hearing normal Cardiovascular: regular rate and rhythym Respiratory: no respiratory distress, no rales or rhonchi, clear to auscultation Gastrointestinal: normoactive bowel sounds Skin: warm Musculoskeletal: full muscle strength Neurologic: AAOx3 Psychiatric: depressed, flat affect Lab Data & Imaging Review 11/08/18 10:15 11/08/18 10:15 WBC 5.80 10^3/uL (3.80-9.50) 11/08/18 10:15 RBC 5.61 10^6/uL (4.40-6.38) 11/08/18 10:15 Hgb 17.1 g/dL (13.7-17.5) 11/08/18 10:15 Hct 50.0 % (40.0-51.0) 11/08/18 10:15 MCV 89.1 fL (81.5-99.8) 11/08/18 10:15 MCH 30.5 pg (27.9-34.1) 11/08/18 10:15 MCHC 34.2 g/dL (32.4-36.7) 11/08/18 10:15 RDW 13.0 % (11.5-15.2) 11/08/18 10:15 Plt Count 218 10^3/uL (150-400) 11/08/18 10:15 MPV 11.0 fL (8.7-11.7) 11/08/18 10:15 Neut % (Auto) 66.2 % (39.3-74.2) 11/08/18 10:15 Lymph % (Auto) 24.7 % (15.0-45.0) 11/08/18 10:15 [place] % (Auto) 6.4 % (4.5-13.0) 11/08/18 10:15 Eos % (Auto) 1.7 % (0.6-7.6) 11/08/18 10:15 Baso % (Auto) 0.7 % (0.3-1.7) 11/08/18 10:15 Nucleat RBC Rel Count 0.0 % (0.0-0.2) 11/08/18 10:15 Absolute Neuts (auto) 3.84 10^3/uL (1.70-6.50) 11/08/18 10:15 Absolute Lymphs (auto) 1.43 10^3/uL (1.00-3.00) 11/08/18 10:15 Absolute Monos (auto) 0.37 10^3/uL (0.30-0.80) 11/08/18 10:15 Absolute Eos (auto) 0.10 10^3/uL (0.03-0.40) 11/08/18 10:15 Absolute Basos (auto) 0.04 10^3/uL (0.02-0.10) 11/08/18 10:15 Absolute Nucleated RBC 0.00 10^3/uL (0-0.01) 11/08/18 10:15 Immature Gran % 0.3 % (0.0-1.1) 11/08/18 10:15 Immature Gran # 0.02 10^3/uL (0.00-0.10) 11/08/18 10:15 Sodium 137 mEq/L (135-145) 11/08/18 10:15 Potassium 4.3 mEq/L (3.5-5.2) 11/08/18 10:15 Chloride 102 mEq/L (97-110) 11/08/18 10:15 Carbon Dioxide 27 mEq/l (22-31) 11/08/18 10:15 Anion Gap 8 mEq/L (6-14) 11/08/18 10:15 BUN 16 mg/dL (7-23) 11/08/18 10:15 Creatinine 0.8 mg/dL (0.7-1.3) 11/08/18 10:15 Estimated GFR > 60 11/08/18 10:15 Glucose 89 mg/dL (70-100) 11/08/18 10:15 Calcium 9.8 mg/dL (8.5-10.4) 11/08/18 10:15 Urine Opiates Screen NEGATIVE (NEGATIVE) 11/08/18 11:45 Urine Barbiturates NEGATIVE (NEGATIVE) 11/08/18 11:45 Ur Phencyclidine Scrn NEGATIVE (NEGATIVE) 11/08/18 11:45 Ur Amphetamine Screen NEGATIVE (NEGATIVE) 11/08/18 11:45 U Benzodiazepines Scrn NEGATIVE (NEGATIVE) 11/08/18 11:45 Urine Cocaine Screen NEGATIVE (NEGATIVE) 11/08/18 11:45 U Marijuana (THC) Screen NEGATIVE (NEGATIVE) 11/08/18 11:45 Ethyl Alcohol < 10 mg/dL (0-10) 11/08/18 10:15 Assessment & Plan Assessment: Severe major depression (Acute) -patient will be going to Behavioral Health for further treatment and evaluation Significant weight loss -suspect this is secondary from depression and hopefully once this is addressed he will put on weight Nicotine dependence -Nicoderm patch ordered Suicidal ideation (Acute) -Behavioral Health physician to further evaluate
--- NOTE | 2018-11-08 17:08 | PDMN ---
Medical Necessity Medical necessity: [facility] [id number] Major Depressive Disorder, Adult: Inpatient Care, 3 days: 33 yo w/ unspecified trauma and stressor related d/o and major depressive d/o, recurrent, severe, on M1 hold for risk of harm to self and others.
[2018-11-08] MEDS: GABAPENTIN 300 MG CAP PO SCH (22:10)
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
--- NOTE | 2018-11-08 23:32 | ASMTLCPROG ---
Notes Note: Notes: Spoke with [facility] Deputy Perez and reported pt's threats towards his mother. Date Signed: 11/08/2018 11:31 PM Electronically Signed By:Marielena Oliva
[2018-11-09] MEDS: oxyCODONE IR 5 MG TAB PO PRN ×2 (07:04→17:09)
--- NOTE | 2018-11-09 08:14 | ASMTBHMTP ---
Master Treatment Plan Master Treatment Plan Answers: Depressed Mood with for: Suicidal Ideation Date: 11/09/2018 Diagnosis on Admission: Major Depressive Disorder, recurrent, severe 296.33 Expected length of stay: 3-5 Days Reason for admission: Notes: Pt is a 33 year old male with a hx of depression, presented voluntarily to [facility] ed at the recommendation of his orthopedic surgeon. Pt suffered a right hand amputation in August from a work injury. Since then, pt as become increasingly depressed and suicidal. Pt reports, " Since losing my hand and the pills, I've been crashing down hard. I'm a walking time bomb man. Every time I argue with my mom, I think about putting my hands on her throat. I just don't care about anything or anyone anymore." Pt reported he has suffered depression and SI prior to losing his hand, but pt states his symptoms are much worse now and stated, " All I think about every day, is just kill myself. I just don't have the balls. Pt reported he has anxiety when he leaves his house and stated, " People look at me different now and treat me differently." Pt stated he does have AH but stated " Sometimes I hear voices but not like I use to. Pt state, " Voices will tell me , I'm better off or homeless. I've actually left my house and gone to live on the streets before. " Pt spoke about the accident at work and stated, " When my hand got chopped off in this machine, I looked down in shock alexey my hand was gone and blood was just squirting and I was like in shock. What freaked me out was everyone started running away from me and I thought, why isn't anyone coming to help me." Patient's stated presenting problems: Notes: Pt. reports "ever since lost my hand, life sucks". Patient's goals for treatment: Notes: Pt. stated "don't even know anything". Patient's strengths: Notes: Pt. stated "lost those" Identify supports outside of hospital: Notes: Pt. stated he "has nobody". Discharge criteria: Notes: Suicidal ideation will resolve and patient will have a plan to safely manage recurrent suicidal ideation. Initial disposition plan/considerations: Notes: Pt. stated he "have no where to go" adding his mother is moving into a new place in [place] and he is not on the lease. Master Treatment Plan Required Signatures Psychiatrist signature: Answers: Psychiatrist: RN on-shift signature: Answers: RN: Patient signature: Answers: Patient: Date Signed: 11/09/2018 08:14 AM Electronically Signed By:Annie Whiteside
[2018-11-09] MEDS: NICOTINE 14 MG/24 HR PATCH TD SCH (08:34)
[2018-11-09] MEDS: GABAPENTIN 300 MG CAP PO SCH ×3 (08:49→21:10)
[2018-11-09] MEDS ORDERED: DIVALPROEX ER 500 MG TAB PO SCH (09:00)
[2018-11-09] MEDS ORDERED: SERTRALINE HCL 50 MG TAB PO SCH (09:00)
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
[2018-11-09] MEDS ORDERED: DIVALPROEX ER 500 MG TAB PO ONE (11:48)
--- NOTE | 2018-11-09 12:33 | ASMTCMCOM ---
CM Note CM Note Notes: CC met with pt. to complete MTP. Pt. stated "don't like rules". Pt. stated when he was in retirement he "made the rules work for me". Pt. reports no receiving any pain medication until 11pm last night, and playing catch up to his pain today. Pt. reports he normally takes 4-5 pills per day for his pain. Pt. reports between the pain in his hand and in his teeth, he has not been motivated to complete ADLs or go outside. Pt. stated "no on in my family has over come it", when discussing his struggles with suicidal ideation. Pt. reports previously being a part of AA/NA but stated once he left [place], they didn't support him any more, which was very upsetting for the pt. Pt. reports seeing his therapist, Ed Bryant, once a week. Pt. attended treatment team meeting this morning, signed several ROIs, including one for his mom ([phone]). Pt. presents as alert, depressed, tearful, lacking eye contact, unkempt, hopeless, and cooperative. Staff report pt. sleeping 9 hours and being medication compliant. CC spoke with pt's psychologist, Dr. Ed Bryant, who stated he will visit the patient later today. Date Signed: 11/09/2018 12:33 PM Electronically Signed By:Annie Whiteside
[2018-11-09] MEDS: DIVALPROEX ER 250 MG TAB PO SCH (12:39)
[2018-11-09] MEDS: DIVALPROEX ER 500 MG TAB PO SCH (12:39)
--- NOTE | 2018-11-09 13:26 | ASMTBHFAM ---
Notes Note: Notes: CC called SUSANNessa Reynoso ([phone]) and left a message asking her to call CC back. Pt. stated MO will know the name of his prosthetic doctor in [place]. Pt. reports having an appointment on Monday to have his right arm molded for a prosthetic Date Signed: 11/09/2018 01:25 PM Electronically Signed By:Annie Whiteside
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
[2018-11-09] MEDS: tiZANidine HCL 2 MG TAB PO PRN (19:00)
[2018-11-10] MEDS: GABAPENTIN 300 MG CAP PO SCH ×3 (08:05→20:59)
[2018-11-10] MEDS: DIVALPROEX ER 500 MG TAB PO SCH (08:05)
[2018-11-10] MEDS: NICOTINE 14 MG/24 HR PATCH TD SCH (08:06)
[2018-11-10] MEDS: DIVALPROEX ER 250 MG TAB PO SCH (08:06)
--- NOTE | 2018-11-10 16:00 | ASMTCMCOM ---
CM Note CM Note Notes: CC attempted to meet with pt. this morning. Pt. stated he was upset and didn't want to talk currently. While CC was in rounds pt. requested to speak with CC. CC approached pt, who began to yell that CC had not spoken with [facility]. CC stated she spoke with MOC on Monday, which pt. stated she was lying. Pt. was informed by RN he was being placed on a phone restriction for calling his mom and yelling at her. Pt. stated he wants to see his mom and wants help. Staff report pt. being upset, yelling and cursing at staff and security this morning. Staff report pt. sleeping 8 hours and refusing his oxycodone for most of the day. Pt. is now on AP2 precautions. At one point today, pt. was difficult to find in his room, as he was standing in an area where the shelving had been previously removed. CC to reach out to pt's case worked, Jose Macarena, about rescheduling pt's appointments on this coming Monday and Monday. Pt's psychologist, Dr. Bryant, stopped by on Monday to visit pt, and pt, refused to see him. Psychologist also provided an evaluation of pt. for [facility] staff. Pt. has an appointment with Dr. Bryant on 11/13/18 @ 1pm Date Signed: 11/10/2018 03:59 PM Electronically Signed By:Annie Whiteside
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
[2018-11-10] MEDS: oxyCODONE IR 5 MG TAB PO PRN (17:17)
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
[2018-11-10] MEDS ORDERED: DIVALPROEX ER 250 MG TAB PO SCH (21:00)
[2018-11-10] MEDS: tiZANidine HCL 2 MG TAB PO PRN (23:11)
[2018-11-11] MEDS: oxyCODONE IR 5 MG TAB PO PRN ×3 (07:41→23:38)
[2018-11-11] MEDS: NICOTINE 14 MG/24 HR PATCH TD SCH (07:41)
[2018-11-11] MEDS ORDERED: DIVALPROEX ER 500 MG TAB PO SCH ×2 (09:00→21:00)
[2018-11-11] MEDS: GABAPENTIN 300 MG CAP PO SCH ×3 (09:10→21:00)
--- NOTE | 2018-11-11 15:52 | ASMTBHDC ---
Notes Note: Notes: CC left voice mail for case work, Jose Angulo ([phone]) to discuss treatment status and coordinate follow up care. The patient presents as irritable, labile, tearful, and depressed. The patient identified several goals for discharge. He expressed interest in a rehab in [place], [place] led by the [facility]; [facility] program. He identified Martin Lisa as a possible point of contact. The patient is interested in staying in [place] until he is able receives his prosthetic and his worker's compensation case closes. The patient endorsed SI and denied HI. He has been intermittently adhering/refusing to medications during treatment. This telegraphic typewriter installer left a voice mail with the patient's mother to discuss tx possibility, transportation barriers, finances, etc; left necessary contact information. This telegraphic typewriter installer left a voice mail with Martin Lisa to discuss program eligibility and services; left necessary contact information. Date Signed: 11/11/2018 10:50 AM Electronically Signed By:Lucy Thomas
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
[2018-11-12] MEDS: oxyCODONE IR 5 MG TAB PO PRN ×2 (07:47→15:44)
[2018-11-12] MEDS: NICOTINE 14 MG/24 HR PATCH TD SCH (07:48)
[2018-11-12] MEDS: GABAPENTIN 300 MG CAP PO SCH ×3 (07:49→20:21)
[2018-11-12] MEDS: OLANZapine DISINTEGR 10 MG TAB PO PRN ×2 (07:52→15:14)
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
[2018-11-12] MEDS: DIVALPROEX ER 500 MG TAB PO SCH (20:22)
[2018-11-13] MEDS: GABAPENTIN 300 MG CAP PO SCH ×4 (07:50→22:02)
[2018-11-13] MEDS: NICOTINE 14 MG/24 HR PATCH TD SCH (07:51)
[2018-11-13] MEDS: oxyCODONE IR 5 MG TAB PO PRN ×2 (07:52→16:29)
[2018-11-13] MEDS: OLANZapine DISINTEGR 10 MG TAB PO PRN (08:07)
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
[2018-11-13] MEDS ORDERED: LORazepam 1 MG TAB PO ONE (08:31)
[2018-11-13] MEDS ORDERED: LORazepam 1 MG TAB ONE (09:17)
--- NOTE | 2018-11-13 13:56 | ASMTCMCOM ---
CM Note CM Note Notes: That patient moved from [address] [facility] to [facility] with [facility] Inpatient Behavioral Health. The patient didn't have questions or concerns at this time. The patient discussed his new wrapper caser, Keya Alva ([phone] ; [email or web address]), with this customs entry writer. The patient's former wrapper caser, Jose MenjivarEverette went on medical leave. CC is coordinating with Keya to support patient with transportation to/from upcoming outpatient appointments. The patient will follow up with Keya directly as well. Date Signed: 11/13/2018 01:55 PM Electronically Signed By:Lucy Thomas
[2018-11-13] MEDS ORDERED: OLANZapine DISINTEGR 10 MG TAB PO SCH (21:00)
[2018-11-13] MEDS: DIVALPROEX ER 500 MG TAB PO SCH (22:03)
[2018-11-14] MEDS ORDERED: oxyCODONE IR 5 MG TAB PO PRN (06:02)
[2018-11-14 07:05] VITALS: BP 119/69
[2018-11-14] MEDS: OLANZapine DISINTEGR 10 MG TAB PO PRN (07:27)
[2018-11-14] MEDS: GABAPENTIN 300 MG CAP PO SCH (08:17)
[2018-11-14] MEDS: NICOTINE 14 MG/24 HR PATCH TD SCH (08:18)
--- NOTE | 2018-11-14 12:14 | BDS ---
[f rep st] BEHAVIORAL HEALTH DISCHARGE SUMMARY REASON FOR ADMISSION: From the ED note dated 11/08/2018, the patient presented to the emergency department, was referred by his orthopedic surgeon for increasing suicidal ideation and reports of feelings of hopelessness. The patient was admitted involuntarily and on an M1 hold due to being a danger to himself. The patient was admitted for safety, crisis stabilization, and medication management. ADMITTING DIAGNOSES: 1. Schizoaffective disorder, bipolar type. 2. Opiate dependence. 3. Nicotine dependence. ADMISSION PHYSICAL EXAM: Patient was seen on 11/08/2018, for history and physical for medical clearance for inpatient psychiatric hospitalization and treatment. The patient was medically cleared for inpatient psychiatric hospitalization and treatment. For further details, please refer to history and physical document dated 11/08/2018. ADMISSION LABS: 1. CBC within normal limits. 2. BMP within normal limits. 3. Hemoglobin A1c within normal limits at 5.1. 4. Lipid panel within normal limits except LDL cholesterol calculated was elevated at 105, HDL cholesterol was low at 39. 5. Liver function within normal limits except AST was elevated at 122 and ALT was elevated at 298. 6. Toxicology screen negative for all the substances screened and negative for ethyl alcohol. 7. Valproic acid 116.3 at current dose of Depakote ER 1500 mg p.o. at bedtime. Patient reports he will follow-up with PCP this Monday for follow-up VPA level. MAJOR PROCEDURES OR TESTS: None. HOSPITAL COURSE: The most prominent symptoms and behaviors while the patient was here were the patient presented with pressured speech, hyper talkative, at times aggressive, agitated, and threatening toward staff. Depakote ER 1500 mg p.o. at bedtime was started to target mood symptoms, was tolerated with no report of side effects and with good response. Zyprexa Zydis 10 mg p.o. at bedtime was started to target mood symptoms, was tolerated with no report of side effects and with good response. The patient reported motivation to taper and discontinue oxycodone at time of admission. Oxycodone IR 5 mg was started and tapered to 5 mg p.o. daily p.r.n. Oxycodone taper was tolerated with no report of side effects and with good response. Patient was provided no Oxycodone IR prescription at time of discharge as he reported having a prescription from pain management. Gabapentin 600 mg p.o. t.i.d. was continued to target anxiety symptoms, was tolerated with no report of side effects and with good response. Patient has improved considerably with no signs of psychiatric symptoms and no psychiatric symptoms expressed. Patient reports he has improved since admission, states to be in stable condition, feels safe to discharge, and he contracts for safety. Patients response to treatment was good. There were no adverse or unexpected results of treatment. The patient was safe throughout stay, active in treatment, engaged in groups, and was appropriate with staff. Patient met with treatment team prior to discharge to assess readiness to discharge and review discharge plan. The treatment team consensus is the patient in stable condition, has a safe discharge plan, and is ready to discharge today. CONDITION AT DISCHARGE: Patient is in stable condition and is no longer a danger to self or others, and is not gravely disabled due to mental illness. Patient is no longer in need of inpatient level of care, and can be safely and effectively treated within the community. The patients level of risk at time of discharge is low. MSE: The patient is casually dressed and with good hygiene , and looks stated age. Patient is sitting, posture is upright, and position is relaxed. Patient appears awake, alert, and responds appropriately and reasonably during interview. Patient is engaged, relates well to interviewer, and emotional facial expression is appropriate to situation and changes appropriately with topic. Patient is cooperative, makes comfortable eye contact , and movements are voluntary, deliberate, coordinated, and smooth and even with no inappropriate movements. Patient makes laryngeal sounds effortlessly and shares conversation appropriately; pace of conversation is appropriate, and stream of talking is fluent; articulation is clear and understandable; word choice is effortless and appropriate for education level; completes sentences, occasionally pausing to think; rate and volume are appropriate for interview and setting. Patient reports mood as euthymic. Patients affect is stable with full variable range, congruent with mood, and appropriate to speech and circumstances. Patient has linear and logical thinking, with no loose associations, tangential thought, thought blocking, concrete thinking, or any other signs of formal thought disorder. Patient denies suicidal and homicidal ideation, and denies hallucinations and delusions. Patient appears to be a reliable historian with sound judgement and good insight into current condition. Patient has no apparent dysfunction in recent or remote memory noted , and no evidence of gross cognitive dysfunction noted at any point during the interview. DISCHARGE DIAGNOSES: 1. Schizoaffective disorder, bipolar type. 2. Opiate dependence. 3. Nicotine dependence. CURRENT MEDICATIONS: After reviewing options, risks, and benefits with the patient, patient agrees to continue: 1. Depakote ER 1500 mg p.o. at bedtime. 2. Zyprexa 10 mg p.o. at bedtime. 3. Gabapentin 600 mg p.o. t.i.d. Patient requests prescriptions for Depakote and Zyprexa at time of discharge. Prescriptions for 30 days for each medications are provided. Prescriptions are reviewed with the patient at time of discharge to ensure accuracy and patient understanding. DISPOSITION: Patient left hospital independently and voluntarily with his mother after meeting with this VULCANIZING PRESS OPERATOR and his mother for a family meeting. FOLLOWUP: multi share program coordinator reports the appropriate outpatient follow-up services have been established and outpatient appointments have been scheduled. The patient received written instructions with times and dates of outpatient follow-up appointments. The following follow-up recommendations were provided to the patient at discharge: Continue psychotropic medications as prescribed and attend appointments as scheduled. Report any side effects to a psychiatric outpatient provider, a primary care provider, or other health rn transitional care. Address any questions or problems concerning the psychotropic medications with a psychiatric outpatient provider, a primary care provider, or other health rn transitional care. Contact [facility] or [facility], or go to the nearest emergency room, if you are ever a danger to yourself/others, or unable to care for yourself. As soon as possible, establish a routine medication management treatment with a psychiatric provider, establish routine therapy appointments, and follow-up with a primary care provider. FOLLOW-UP LABS: Patient reports plan to follow-up with PCP for follow-up VPA level this Monday. LEGAL COURSE: Patient was admitted involuntarily on an M1 hold for psychiatric hospitalization and treatment. The patient was then placed on a short-term certification. The patient discharged today independently and voluntarily and at time of discharge patient's short-term certification was terminated. ATTITUDE AT TIME OF DISCHARGE: The patients attitude was positive at time of discharge, and patient reports looking forward to discharging today. The patient reports he feels safe to discharge, is no longer a danger to himself or others, is in stable condition, and contracts for safety. Patient states he will continue medications as prescribed, and establish medication management treatment with an outpatient provider after discharge. Patient reports he understands the information that has been provided to him, and he understands, accepts, and agrees to psychotropic medications. Patient describes internal protective factors as the coping skills he has learned while hospitalized here, and he plans to continue to practice these coping skills after discharge. LABS AND STUDIES: There were no pending labs or studies at time of discharge. ADVANCE DIRECTIVES: There were no advance directives on file and patient was full code during this hospitalization. The following psychotropic medication treatment informed consent and recommendations were provided to the patient at time of discharge. Patient reports he understands, accepts, and agrees to the information that has been provided. PSYCHOTROPIC MEDICATION TREATMENT INFORMED CONSENT and RECOMMENDATIONS: Review nature of condition, diagnosis, and prognosis. Review nature and purpose of psychotropic medication treatment. Review type of psychotropic medications being prescribed. Review risk and benefits of psychotropic medication treatment. Review probable length of time will need to take medications. Review risk and benefits of not undergoing psychotropic medication treatment. Review alternative treatments to psychotropic medications. Review psychotropic medications contraindications, side effects, and importance of reporting any side effects to a psychiatric provider, primary care provider, or other health rn transitional care. Review importance of asking a psychiatric provider or primary care provider any questions or problems concerning the psychotropic medications. Review safety plan and the importance to contact [facility] or [facility] , or go to the nearest emergency room, if ever a danger to yourself/others, or unable to care for yourself. Recommend upon discharge to establish routine medication management treatment with a psychiatric provider, establish routine therapy appointments, and follow-up with a primary care provider. Verify patient understands, accepts, and agrees to the information that has been provided. /[id number]/MODL [id number]
== END 2018-11-14 11:10 | disposition home or self-care (01) | DRG 885 ==
LOC: BBEH 15:00
PROVIDERS: ADMIT Psychiatry & Neurology Psychiatry; ATTEND Registered Nurse
DX: F25.0 Schizoaffective disorder, bipolar type (principal); F11.20 Opioid dependence, uncomplicated; F17.200 Nicotine dependence, unspecified, uncomplicated; R45.851 Suicidal ideations
CPT/HCPCS: 80305; G0480